=== PATIENT | male | born 1930 | race Caucasian/White ===

== ENCOUNTER 2017-05-18 11:18 | Emergency (ER) | payer MEDICARE, OTHER ==
[~2017-05-18] VITALS: Ht 167.6 cm; Wt 79.8 kg
[~2017-05-18 11:18] MED LIST: ASPI-535 PO; ATOR40TA68 PO; CILO50TA PO; DOXA4TAB3 PO; IRBE300T15 PO; METO-448 PO
[2017-05-18 11:22] VITALS: Ht 167.6 cm; Wt 79.8 kg
[2017-05-18] MEDS ORDERED: SOD CHLORIDE 0.9% 1,000 ML IV STA (11:45)
[2017-05-18] MEDS ORDERED: morphine 2 MG INJ IV STA (11:45)
[2017-05-18 11:50] VITALS: TEMP 97.9
--- NOTE | 2017-05-18 11:53 | ERD ---
ER Documentation Chief Complaint Chief Complaint abdominal pain x 3 days ROS All systems reviewed and are negative except as per history of present illness. Medications Home Meds Reported Medications Cilostazol* (Cilostazol*) 50 Mg Tablet, 50 MG PO DAILY, TAB 07/12/15 Metoprolol Tartrate* (Lopressor*) 25 Mg Tab, 25 MG PO BID, #60 TAB 07/12/15 Doxazosin Mesylate* (Doxazosin Mesylate*) 4 Mg Tablet, 4 MG PO HS, TAB 07/12/15 Irbesartan* (Irbesartan*) 300 Mg Tablet, 300 MG PO DAILY, TAB 03/27/14 Atorvastatin* (Atorvastatin*) 40 Mg Tablet, 40 MG PO DAILY, TAB 03/27/14 Aspirin Ec (Aspir 81) 81 Mg Tablet.dr, 81 MG PO DAILY 01/22/13 Allergies Allergies: Coded Allergies: No Known Allergies (Verified Allergy, Mild, 03/27/14) PMhx/Soc CAD with prior PCI and stent placement, hypertension, hypercholesterolemia, abdominal wall hernia, Nieves's palsy, paroxysmal atrial fibrillation History of Surgery: Yes (stent placement) Anesthesia Reaction: No Hx Neurological Disorder: No Hx Respiratory Disorders: No Hx Cardiac Disorders: Yes (htn) Hx Psychiatric Problems: No Hx Miscellaneous Medical Probl: Yes (HIGH CHOLESTEROL) Hx Alcohol Use: No Hx Substance Use: No Hx Tobacco Use: No FmHx Family History: No diabetes Physical Exam Vitals Vital Signs Date Time Temp Pulse Resp B/P Pulse Ox O2 Delivery O2 Flow Rate FiO2 05/18/17 11:50 97.9 64 17 177/66 94 05/18/17 11:22 97.4 53 18 223/96 94 Physical Exam GENERAL: Well-developed, well-nourished, well-hydrated, in no apparent distress , looks nontoxic in appearance, afebrile HEENT: Moist mucous membranes, pink conjunctiva, no cervical spine tenderness or step-off deformities, no goiter, no jaundice or icterus, extraocular movements intact without pain. NEURO: Alert and oriented 3, cranial nerves II through XII intact bilaterally, pupils equal round reactive to light, no focal deficits or facial asymmetry, sensation intact distally Strength 5/5 in upper and lower extremities bilaterally CARDIAC: Regular rate and rhythm, no murmurs rubs or gallops LUNGS: Clear bilaterally no wheezing crackles or stridor ABDOMEN: Soft, protuberant abdomen, large abdominal anterior hernia palpated it is soft and reducible without tenderness, no abdominal rigidity, no rebound, no pulsatile mass SKIN: Warm and dry to touch, no abrasions, contusions, or hematomas, no lacerations, no ecchymosis, no target lesions, and without ulcers EXTREMITIES: No clubbing cyanosis or edema, calves are bilaterally symmetrical, no Homans sign, no popliteal cord sign. Distal pulses equal and bilateral PSYCH: Normal affect without agitation or irritability Result Diagram: 05/18/17 1232 05/18/17 1232 Results 24 hrs Laboratory Tests Test 05/18/17 12:32 05/18/17 13:04 White Blood Count 7.310^3/ul Red Blood Count 5.9510^6/ul Hemoglobin 18.0g/dl Hematocrit 53.2% Mean Corpuscular Volume 89.4fl Mean Corpuscular Hemoglobin 30.3pg Mean Corpuscular Hemoglobin Concent 33.8g/dl Red Cell Distribution Width 15.4% Platelet Count 86427^3/UL Mean Platelet Volume 12.6fl Neutrophils % 65.4% Lymphocytes % 20.7% Monocytes % 10.6% Eosinophils % 2.2% Basophils % 0.8% Nucleated Red Blood Cells % 0.0/100WBC Neutrophils # 4.710^3/ul Lymphocytes # 1.510^3/ul Monocytes # 0.810^3/ul Eosinophils # 0.210^3/ul Basophils # 0.110^3/ul Nucleated Red Blood Cells # 0.010^3/ul Prothrombin Time 12.6Sec Prothrombin Time Ratio 1.0 INR International Normalized Ratio 0.93 Sodium Level 140mmol/L Potassium Level 4.8mmol/L Chloride Level 104mmol/L Carbon Dioxide Level 26mmol/L Anion Gap 15 Blood Urea Nitrogen 24mg/dl Creatinine 1.17mg/dl Glucose Level 87mg/dl Calcium Level 10.1mg/dl Total Bilirubin 1.8mg/dl Direct Bilirubin 0.00mg/dl Indirect Bilirubin 1.8mg/dl Aspartate Amino Transf (AST/SGOT) 31IU/L Alanine Aminotransferase (ALT/SGPT) 35IU/L Alkaline Phosphatase 89IU/L Troponin I < 0.012ng/ml B-Type Natriuretic Peptide 384PG/ML Total Protein 7.0g/dl Albumin 4.0g/dl Globulin 3.00g/dl Albumin/Globulin Ratio 1.33 Lipase 65U/L Urine Color YELLOW Urine Clarity CLEAR Urine pH 6.0 Urine Specific Wells 1.017 Urine Ketones NEGATIVEmg/dL Urine Nitrite NEGATIVEmg/dL Urine Bilirubin NEGATIVEmg/dL Urine Urobilinogen NEGATIVEmg/dL Urine Leukocyte Esterase NEGATIVELeu/ul Urine Microscopic RBC 0/HPF Urine Microscopic WBC 1/HPF Urine Mucus FEW/HPF Urine Hemoglobin NEGATIVEmg/dL Urine Glucose NEGATIVEmg/dL Urine Total Protein 2+mg/dl Current Medications Medications (Trade) Dose Ordered Sig/Ran Route PRN Reason Start Time Stop Time Status Last Admin Dose Admin Sodium Chloride (NS) 1,000 ml @ 1,000 mls/hr Q1H STAT IV 05/18/17 11:45 05/18/17 12:44 DC 05/18/17 12:38 Morphine Sulfate (morphine) 2 mg ONCE STAT IV 05/18/17 11:45 05/18/17 11:47 DC Enalaprilat (Vasotec Iv) 1.25 mg ONCE ONCE IV 05/18/17 12:00 05/18/17 12:01 DC 05/18/17 12:37 IV Flush 10 ml 10 ml STK-MED ONCE .ROUTE 05/18/17 13:24 05/18/17 13:25 DC 05/18/17 13:47 Sodium Chloride (NS) 100 ml @ ud STK-MED ONCE .ROUTE 05/18/17 13:24 05/18/17 13:25 DC 05/18/17 13:47 Iodixanol (Visipaque Locm) 100 ml STK-MED ONCE .ROUTE 05/18/17 13:24 05/18/17 13:25 DC 05/18/17 13:48 Procedures/MDM IV line was established patient was placed on monitor technician rhythm strip revealed a sinus rhythm at about 60 bpm with upright P and T waves. Patient was afebrile EKG performed, read by me revealed a sinus bradycardia 58 bpm, left axis deviation, first-degree AV block NM interval 204 ms, narrow complex QRS, no concerning ST elevations or depressions noted. I administered 1 L normal saline intravenously and enalapril 1.25 mg IV for hypertension, morphine 2 mg IV 1 for abdominal cramping. One AP view of the chest performed, read by me reveals no acute infiltrates, normal mediastinum, sharp costophrenic and cardiac borders, no air under the diaphragm. Otherwise unremarkable chest x-ray. CT scan of the abdomen and pelvis was performed,IMPRESSION: 1. No evidence of aortic aneurysm or dissection. There is diffuse atherosclerotic calcification of the aorta and its major branches. However all vessels demonstrates patency. 2. No evidence of acute intra-abdominal/pelvic inflammatory process. No evidence of bowel obstruction. The appendix is within normal limits. Moderate size hiatal hernia. 3. Extensive sigmoid diverticulosis. 4. Right inguinal postsurgical changes. CBC and electrolytes are normal, liver function tests were normal, troponin was negative. Urine analysis was negative for infection. NICOLE OWEN MD May 18, 2017 11:53
[2017-05-18] MEDS ORDERED: ENALAPRILAT 1.25 MG INJ IV ONE (12:00)
--- NOTE | 2017-05-18 12:22 | RADRPT ---
PROCEDURE: Chest x-ray CLINICAL INDICATION: Abdominal pain TECHNIQUE: Chest single view COMPARISON: 07/12/2015 FINDINGS: There is moderate cardiomegaly and atherosclerotic aortic calcification.. The pulmonary vessels are normal in caliber. Mild basilar atelectasis is seen. Lungs otherwise clear. Costophrenic angles are sharp. No free air is noted of the diaphragms. IMPRESSION: No acute cardiopulmonary disease. Stable cardiomegaly and an sclerotic aortic calcification Mild basilar atelectasis RPTAT: HH .Kameron Arenas MD, MD Date Time Electronically viewed and signed by .Kameron Arenas MD, on 05/18/2017 12:22 .W/
[2017-05-18 12:45] LABS: BASOPHIL # 0.1 10^3/ul (0.0-0.1); BASOPHILS % 0.8 % (0.0-2.0); EOSINOPHILS # 0.2 10^3/ul (0.0-0.5); EOSINOPHILS % 2.2 % (0.0-7.0); HEMATOCRIT 53.2 % (42.0-52.0); LYMPHOCYTES # 1.5 10^3/ul (0.8-2.9); LYMPHOCYTES % 20.7 % (15.0-51.0); MEAN CORPUSCULAR HEMOGLOBIN 30.3 pg (29.0-33.0); MEAN CORPUSCULAR HGB CONC 33.8 g/dl (32.0-37.0); MEAN CORPUSCULAR VOLUME 89.4 fl (82.0-101.0); MEAN PLATELET VOLUME 12.6 fl (7.4-10.4); MONOCYTE # 0.8 10^3/ul (0.3-0.9); MONOCYTES % 10.6 % (0.0-11.0); NEUTROPHIL # 4.7 10^3/ul (1.6-7.5); NEUTROPHILS % 65.4 % (39.0-77.0); PLATELET COUNT 138 10^3/UL (140-415); RED BLOOD COUNT 5.95 10^6/ul (4.70-6.10); RED CELL DISTRIBUTION WIDTH 15.4 % (11.5-14.5); WHITE BLOOD COUNT 7.3 10^3/ul (4.8-10.8)
[2017-05-18 13:04] LABS: INR 0.93; PROTIME 12.6 Sec (11.9-14.9)
[2017-05-18 13:06] LABS: ALANINE AMINOTRANSFERASE 35 IU/L (13-69); ALBUMIN/GLOBULIN RATIO 1.33; ALKALINE PHOSPHATASE 89 IU/L (42-121); ANION GAP 15 (8-16); ASPARTATE AMINO TRANSFERASE 31 IU/L (15-46); BILIRUBIN,INDIRECT 1.8 mg/dl (0-1.1); BILIRUBIN,TOTAL 1.8 mg/dl (0.2-1.3); BLOOD UREA NITROGEN 24 mg/dl (7-20); CALCIUM 10.1 mg/dl (8.4-10.2); CARBON DIOXIDE 26 mmol/L (21-31); CHLORIDE 104 mmol/L (97-110); CREATININE 1.17 mg/dl (0.61-1.24); GLUCOSE 87 mg/dl (70-220); POTASSIUM 4.8 mmol/L (3.5-5.1); SODIUM 140 mmol/L (135-144)
[2017-05-18 13:19] LABS: B-TYPE NATRIURETIC PEPTIDE 384 PG/ML (0-450)
[2017-05-18 13:23] LABS: TROPONIN-I < 0.012 ng/ml (0.00-0.12)
[2017-05-18] MEDS ORDERED: SOD CHLORIDE 0.9% 100 ML ONE (13:24)
[2017-05-18] MEDS ORDERED: IODIXANOL LOCM 100 ML BTL ONE (13:24)
[2017-05-18 13:25] LABS: ADD UMIC YES; UR ASCORBIC ACID 40 mg/dL (NEGATIVE); UR BILIRUBIN (Dip) NEGATIVE (NEGATIVE); UR BLOOD (Dip) NEGATIVE (NEGATIVE); UR CLARITY CLEAR (CLEAR); UR COLOR YELLOW (YELLOW); UR GLUCOSE (Dip) NEGATIVE (NEGATIVE); UR KETONES (Dip) NEGATIVE (NEGATIVE); UR LEUKOCYTE ESTERASE (Dip) NEGATIVE Leu/ul (NEGATIVE); UR MUCUS FEW /HPF (NONE SEEN); UR NITRITE (Dip) NEGATIVE (NEGATIVE); UR RBC 0 /HPF (0-5); UR SPECIFIC GRAVITY (Dip) 1.017 (1.003-1.030); UR TOTAL PROTEIN (Dip) 2+ mg/dl (NEGATIVE); UR UROBILINOGEN (Dip) NEGATIVE (NEGATIVE)
[2017-05-18 13:50] VITALS: BP 107/53; PULSE 67; RESP 22
--- NOTE | 2017-05-18 13:58 | RADRPT ---
PROCEDURE: CT ABDOMEN/PELVIS ANGIOGRAM. CLINICAL INDICATION: Abdominal pain. Rule out abdominal aortic aneurysm. TECHNIQUE: CT angiogram of the abdomen/pelvis was performed on a multidetector high-resolution CT scanner. High-resolution thin slice coronal and sagittal imaging was obtained from the axial source images. 3-D volumetric rendered post processing was not performed. The patient was examined follo wing the uncomplicated intravenous administration of 100 cc of Visipaque 320. The images were review ed on a PACS workstation. The total exam CTDI equals 36 mGy, and the total exam DLP equals 1048.8 mG y-cm. One or more of the following dose reduction techniques were used: Automated exposure control. Adjustment of the mA and/or kV according to patient size. Use of iterative reconstruction technique. DICOM images are available. COMPARISON: None FINDINGS: CT abdomen: Bilateral lower lobe atelectasis is noted. The heart size is enlarged. There is no significant peric ardial effusion. Hepatic morphology is within limits. No gross masses or lesions. The gallbladder is unremarkable. No evidence of intrahepatic or extrahepatic biliary dilatation. The spleen and pancreas are within limits. Both adrenal glands are within limits. Both kidneys are and normal anatomic position. There is scarring of the left kidney. No gross renal/ ureteric calculi. No obstruction hydronephrosis. The visualized GI tract demonstrates a moderate size hiatal hernia. Normal caliber loops of small an d large bowel noted. No obstruction. Stool filled loops of large bowel identified. The appendix is w ithin normal limits. There is diffuse atherosclerotic calcification of the aorta. No evidence of aortic aneurysm or disse ction. There is atherosclerotic calcification of the origin of the celiac axis, SMA, and bilateral r enal arteries as well as the MICHAEL. However, all branches demonstrates patency. Several shoddy retrope ritoneal lymph nodes are noted. CT pelvis: Extensive sigmoid diverticulosis is noted. The bladder is within normal limits. Prostate gland is mi ldly enlarged. No significant free fluid. No significant pelvic lymphadenopathy. Right inguinal post surgical changes are noted. The visualized osseous structures demonstrate multilevel degenerative disease of the spine. IMPRESSION: 1. No evidence of aortic aneurysm or dissection. There is diffuse atherosclerotic calcification of t he aorta and its major branches. However all vessels demonstrates patency. 2. No evidence of acute intra-abdominal/pelvic inflammatory process. No evidence of bowel obstructio n. The appendix is within normal limits. Moderate size hiatal hernia. 3. Extensive sigmoid diverticulosis. 4. Right inguinal postsurgical changes. RPTAT: AAPP Bertin Dias Physician Date Time Electronically viewed and signed by Bertin Dias Physician on 05/18/2017 13:57 JL/
== END 2017-05-18 15:44 | disposition home or self-care (01) ==
LOC: E/R 11:18
DX: K57.30 Diverticulosis of large intestine without perforation or abscess without bleeding (principal); I10 Essential (primary) hypertension; I25.10 Atherosclerotic heart disease of native coronary artery without angina pectoris; Z79.82 Long term (current) use of aspirin; Z98.61 Coronary angioplasty status
CPT/HCPCS: 36415; 71010; 74177; 80053; 81001; 83690; 83880; 84484; 85025; 85610; 93005; 96361; 96374; 99285; J2270; J7030; Q9967